=== PATIENT | female | born 1990 | race Caucasian/White ===

== ENCOUNTER → 2021-08-31 06:33 | Outpatient (CLI) | payer OTHER, SELFPAY ==
--- NOTE | 2021-08-31 06:38 | DI.MRI.S_ITS ---
PROCEDURE: MR HEAD/BRAIN WO CON INDICATIONS: Dizziness and giddiness TECHNIQUE: Noncontrast axial T1 spin echo, axial T2 fast spin echo, sagittal and axial FLAIR, coronal T2 fast spin echo, axial gradient echo, axial diffusion and ADC through the brain. COMPARISON: None. FINDINGS: Image quality: Excellent. CSF Spaces: Basal cisterns are patent. No extra-axial fluid collections. Ventricles are normal in size and shape. Brain: No intracranial masses or hemorrhage. Rinaldi/white matter interface is normal. Brainstem appears normal. Diffusion-weighted images demonstrate no acute ischemic insult. No chronic ischemic insults. Normal intravascular flow voids are present. Skull and face: Calvarium has normal marrow signal. Orbits appear normal. Sinuses: Sinuses demonstrate minimal scattered areas of mucosal thickening. IMPRESSION: 1. No acute intracranial process. Dictated by: Ami Pillai M.D. on 08/31/2021 at 8:29 Approved by: Ami Pillai M.D. on 08/31/2021 at 8:30
== END ==
PROVIDERS: Referring Provider Psychiatry & Neurology Neurology; Visit Provider Psychiatry & Neurology Neurology
DX: R42 Dizziness and giddiness (principal)
CPT/HCPCS: 70551

== ENCOUNTER → 2021-10-28 09:29 | Outpatient (CLI) | payer OTHER, SELFPAY ==
[2021-10-28 11:41] LABS: COVID19 -Nasal RAPID Negative (Negative)
== END ==
PROVIDERS: Visit Provider Family Medicine Sleep Medicine
DX: Z20.822 Contact with and (suspected) exposure to COVID-19 (principal)
CPT/HCPCS: 87635; C9803

== ENCOUNTER 2021-10-29 09:47 | Day surgery (SDC) | payer OTHER, SELFPAY ==
[2021-10-26 15:05] VITALS: BMI 24.3
--- NOTE | 2021-10-29 09:55 | PM.PREOP ---
Pre-operative Note Interval Note History & Physical reviewed/Exam performed by Physician: Yes Changes to H&P: No
--- NOTE | 2021-10-29 09:55 | PM.HP.1 ---
History of Present Illness History of Present Illness Date Patient Seen: 10/29/21 Time Patient Seen: 09:55 Chief complaint: Tonsillectomy Narrative: 31-year-old female with a history of chronic tonsillitis, tonsil stones, and Throat pain last seen in clinic 08/18/2021 presents for tonsillectomy and possible adenoidectomy as outpatient, due to failure of medical therapy No interval health changes, she wishes to proceed. Patient History Medical History Chronic tonsillitis Migraines Surgical History History of breast surgery (2013) Hx of appendectomy (2011) Hx of wisdom tooth extraction (2001) Family & Social History Social History: household members spouse Tobacco & Substance use: Smoking Status Never smoker alcohol intake current Substance Use Type does not use Meds Home Medications and Allergies Home Medications Medication Instructions Recorded Confirmed Type citalopram 10 mg tablet 5 mg PO DAILY 10/26/21 10/26/21 History Allergies Allergy/AdvReac Type Severity Reaction Status Date / Time No Known Drug Allergies Allergy Verified 10/29/21 10:02 Review of Systems Review of Systems Narrative: Negative except as listed in the HPI Exam Narrative Exam Narrative: Well-developed well-nourished female 2 to 3+ tonsils, heart regular rate and rhythm without murmur, lungs clear to auscultation bilaterally Assessment & Plan Assessment & Plan narrative: Assessment: Chronic tonsillitis, tonsil stones, throat pain Plan: Following discussion of the material risks benefits complications and alternatives, the patient elected to proceed with tonsillectomy and possible adenoidectomy as outpatient. Time Spent With Patient Critical Care time: I spent a total of [] minutes of critical care time on this patient's care today; this time is exclusive of procedural time.
[2021-10-29 10:04] VITALS: BP 123/89; PULSE 79; RESP 16; TEMP 36.5; O2SAT 99
[2021-10-29 10:05] VITALS: BMI 24.3
--- NOTE | 2021-10-29 10:12 | P.OP_ITS ---
Operative Date/Time/Diagnoses Date of procedure: 10/29/21 Time of procedure: 11:00 Pre-op diagnosis: Chronic tonsillitis, tonsil stone, throat pain Post-op diagnosis: same (Mild adenoid hypertrophy) Procedure & Clinicians Procedure: Tonsillectomy and adenoidectomy Same procedure as scheduled: Yes Indications: 31-year-old female with the above diagnoses incompletely managed with medical therapy presents for the above procedure. Following discussion of the material risks benefits complications and alternatives, she elected to proceed. Surgeon: Andre White Click Yes if Unassisted: Yes Anesthesia Type: General and Local Operative Notes Findings: Intact palate, single uvula, 2 to 3+ tonsils, 1-2+ adenoids Estimated Blood Loss (mL): 5 Procedure in detail: Following identification and confirmation of consent the patient was brought to the operating room suite and placed in the supine position. General endotracheal anesthesia was administered. A head wrap, shoulder roll, and mouth gag were placed and a red rubber catheter was inserted through the nostril and out the mouth to retract the soft palate. Partially obstructive adenoid tissue was ablated with suction electrocautery on a setting of 40, without injury to the eustachian tube orifices or choana. The left tonsil was retracted medially and suction electrocautery on a setting of 30 was used to dissect the tonsil in a subcapsular plane, followed by hemostasis with the same. This process was repeated on the right side with identical findings. The tonsillar fossae were superficially infiltrated bilaterally with a 1:1 mixture of 1% lidocaine 1 100,000 epinephrine and 0.5% Marcaine. Mouth gag and rubber catheter were removed and the patient was e xtubated in the operating room and taken to the recovery room in stable condition without known complication. Complications: none Post-operative Condition: stable Disposition: same day surgery Plan for aftercare: Push fluids, alternate Tylenol and Advil every 3 hours for baseline pain control, oxycodone for breakthrough pain. Soft diet 2 full weeks, no heavy lifting or straining 2 weeks.
[2021-10-29] MEDS: LACTATED RINGERS 1,000 ML 42 ML IV (10:13)
--- NOTE | 2021-10-29 10:44 | SUR.OPER ---
Supine on padded OR bed, head on pillow, arms secured on padded arm boards at <90 degrees abduction, legs uncrossed, safety belt at thigh, tape over blanket over lower legs. Directed and approved by surgeon
[2021-10-29] MEDS: BUPIVACAINE 0.5% (PF) VIAL 10 ML INJ (10:47)
[2021-10-29] MEDS: LIDOCAINE 1% W/EPI 20 ML INJ (10:48)
[2021-10-29 11:08] VITALS: BP 91/60; PULSE 102; RESP 16; TEMP 36.3; O2SAT 97
[2021-10-29 11:12] VITALS: BP 102/78; PULSE 88; RESP 16; TEMP 36.8; O2SAT 98
[2021-10-29 11:20] VITALS: BP 98/66; PULSE 93; RESP 16; O2SAT 100
[2021-10-29] MEDS: OXYCODONE/ACETAMINOPHEN 5/325 TABLET 1 TAB PO (11:26)
[2021-10-29 11:53] VITALS: BP 120/91; PULSE 80; RESP 16; TEMP 36.5; O2SAT 97
== END 2021-10-29 12:00 | disposition home or self-care (01) ==
PROVIDERS: Referring Provider Otolaryngology; Visit Provider Otolaryngology
PROC: (CPT 42821; principal; 2021-10-29 10:30)
DX: J35.01 Chronic tonsillitis (principal); K11.5 Sialolithiasis
CPT/HCPCS: 42821; 81025; J0330; J1100; J2250; J2405; J2704; J3010